=== PATIENT | female | born 1980 | race Caucasian/White ===

== ENCOUNTER 2016-11-25 20:16 | Emergency (ER) | payer BC ==
[~2016-11-25] VITALS: Ht 162.6 cm; Wt 82.5 kg
[~2016-11-25 20:16] MED LIST: CIPR500T4 PO; CYCL5TAB PO; D ME PO; DICY20TA59 PO; HYDR-3498 PO; HYDR25SU23 PR; IBUP400T22 PO; METR500T PO
[2016-11-25 20:19] VITALS: Ht 162.6 cm; Wt 82.5 kg
[2016-11-25] MEDS ORDERED: IBUP-1542 PO (20:43)
[2016-11-25] MEDS ORDERED: AMO500 PO (20:43)
--- NOTE | 2016-11-25 20:59 | ERD ---
ER Documentation Chief Complaint Date/Time DATE: 11/25/16 TIME: 20:56 Chief Complaint sore throat x 2 days HPI 36-year-old female presents to emergency department for complaints of sore throat for 2 days. Patient has been having sore throat, burning pain, 6/10 scale , is worse upon swallowing. Patient states that her right submandibular lymph node and has been inflamed. Is also is complaining of pain on affected area for sharp pain 4/10 scale, is worse upon touching the area. Patient denies any fever or chills. Patient did not take any medication stop her symptoms were ROS All systems reviewed and are negative except as per history of present illness. Medications Home Meds Active Scripts Ibuprofen* (Motrin*) 600 Mg Tab, 600 MG PO Q6H Y for PAIN AND OR ELEVATED TEMP, #30 TAB Prov:LIZABETH MERCHANT NP 11/25/16 Amoxicillin* (Amoxicillin*) 500 Mg Cap, 500 MG PO TID for 10 Days, CAP Prov:LIZABETH MERCHANT NP 11/25/16 Hydrocortisone Acetate (Anusol-Hc) 25 Mg Supp.rect, 1 SUPP TX QHS Y for HEMORROID PAIN/ITCHING, #12 SUPP.RECT Prov:LIZABETH MERCHANT NP 02/06/16 Dicyclomine Hcl* (Bentyl*) 20 Mg Tablet, 20 MG PO QID, #20 TAB Prov:LIZABETH MERCHANT NP 02/06/16 Metronidazole* (Flagyl*) 500 Mg Tablet, 500 MG PO TID for 10 Days, TAB Prov:LIZABETH MERCHANT NP 02/06/16 Ciprofloxacin Hcl* (Ciprofloxacin Hcl*) 500 Mg Tablet, 500 MG PO BID for 10 Days , TAB Prov:LIZABETH MERCHANT NP 02/06/16 Cyclobenzaprine Hcl* (Cyclobenzaprine Hcl*) 5 Mg Tablet, 5 MG PO Q8H Y for MUSCLE SPASMS, #30 TAB Prov:LIZABETH MERCHANT NP 06/19/15 Hydrocodone Bit-Acetaminophen* (Ruston*) 5-325 Mg Tab, 1 TAB PO Q4H Y for SEVERE PAIN LEVEL 7-10, #30 TAB Prov:LIZABETH MERCHANT NP 06/19/15 Reported Medications Ibuprofen* (Ibuprofen*) Unknown Strength Tablet, PO QID, TAB 06/19/15 D-Methorphan/P-Ephed/Acetaminp (Tylenol Cold & Flu Severe Liq) 240 Ml Liquid, 240 ML PO PRN 06/25/12 Allergies Allergies: Coded Allergies: No Known Allergy (Unverified , 06/25/12) PMhx/Soc History of Surgery: Yes (OVARIAN POLYPS REMOVED 2009) Anesthesia Reaction: No Hx Neurological Disorder: No Hx Respiratory Disorders: No Hx Cardiac Disorders: No Hx Psychiatric Problems: No Hx Miscellaneous Medical Probl: Yes (PCOS, anemia) Hx Alcohol Use: No Hx Substance Use: No Hx Tobacco Use: No FmHx Family History: No coronary disease, No diabetes, No other Physical Exam Vitals Vital Signs Date Time Temp Pulse Resp B/P Pulse Ox O2 Delivery O2 Flow Rate FiO2 11/25/16 20:19 99.4 74 20 161/80 100 Physical Exam GENERAL: The patient is well developed and appropriate for usual state of health, in no apparent distress. HEENT: Atraumatic. Ears: Normal tympanic membrane, no erythema or bulging. No ear canal swelling. No ear discharge. Nose: normal nasal turbinates, no erythema or swelling. Normal nasal discharge. Throat: oropharynx erythematous with + tonsillar swelling and tonsillar exudates noted. Noted inflamed right submandibular lymph node.. CHEST: Clear to auscultation bilaterally. There are no rales, wheezes or rhonchi. HEART: Regular rate and rhythm. No murmurs, clicks, rubs or gallops. No S3 or S4. ABDOMEN: Soft, nontender and nondistended. Good bowel sounds. No rebound or guarding. No gross peritonitis. No gross organomegaly or masses. No Rod sign or McBurney point tenderness. BACK: No midline or flank tenderness. EXTREMITIES: Equal pulses bilaterally. There is no peripheral clubbing, cyanosis or edema. No focal swelling or erythema. Full range of motion. Grossly neurovascularly intact. NEURO: Alert and oriented. Cranial nerves 2-12 intact. Motor strength in all 4 extremities with 5/5 strength. Sensation grossly intact. Normal speech and gait. SKIN: There is no apparent rash or petechia. The skin is warm and dry. HEMATOLOGIC AND LYMPHATIC: There is no evidence of excessive bruising or lymphedema. No gross cervical, axillary, or inguinal lymphadenopathy. Procedures/MDM Medical decision making: Patient symptoms is likely consistent with acute bacterial pharyngitis, most likely strep throat. Patient has inflamed right submandibular lymph node with this. Low suspicion for peritonsillar abscess, mononucleosis, no symptoms of epiglottitis, laryngitis. No oral airway obstruction noted. No symptoms of sepsis at this time. Patient appears well and is hemodynamically stable. Patient was given for amoxicillin, ibuprofen, Tylenol , is advised to follow-up with primary care doctor in 2-3 days for reevaluation of symptoms. Patient is advised to do salt water gargles. Patient is advised to return to emergency department for worsening symptoms. Disposition: Home. Stable. Departure Diagnosis: Primary Impression: Acute bacterial pharyngitis Additional Impression: Lymphadenopathy Condition: Stable Patient Instructions: When Your Child Has Swollen Lymph Nodes, Pharyngitis, Strep (Presumed) LIZABETH MERCHANT NP Nov 25, 2016 20:59
== END 2016-11-25 20:43 | disposition home or self-care (01) ==
LOC: E/R 20:16
DX: J02.9 Acute pharyngitis, unspecified (principal); R59.0 Localized enlarged lymph nodes
CPT/HCPCS: 99283

== ENCOUNTER 2018-04-08 13:18 | Emergency (ER) | END 2018-04-08 14:48 | disposition home or self-care (01) ==